=== PATIENT | male | born 1970 | race Caucasian/White ===

== ENCOUNTER → 2016-10-17 | Outpatient (CLI) | payer OTHER ==
[2016-10-17 10:31] LABS: HEMOGLOBIN A1c 5.4 % (4.8-5.6)
== END | disposition home or self-care (01) ==
LOC: LAB 09:48
PROVIDERS: Family Medicine
DX: D55.9 Anemia due to enzyme disorder, unspecified (principal)

== ENCOUNTER 2016-11-17 18:34 | Emergency (ER) | payer OTHER ==
[~2016-11-17] VITALS: Ht 185.4 cm; Wt 90.7 kg
[2016-11-17] MEDS ORDERED: VITAMIN D400 UNIT/1 PO (18:39)
[2016-11-17] MEDS ORDERED: FISH OIL1000 MG PO (18:39)
== END 2016-11-17 19:02 | disposition home or self-care (01) ==
LOC: ED 18:34
DX: S61.210A Laceration without foreign body of right index finger without damage to nail, initial encounter (principal); Z29.12 Encounter for prophylactic antivenin; W45.8XXA Other foreign body or object entering through skin, initial encounter; Y93.89 Activity, other specified; Y92.9 Unspecified place or not applicable; Y99.9 Unspecified external cause status

== ENCOUNTER → 2018-10-14 | Outpatient (CLI) | payer OTHER ==
[~2018-10-14] MED LIST: FISH OIL1000 MG PO; VITAMIN D400 UNIT/1 PO
[2018-10-14 10:30] LABS: HEMATOCRIT 44.8 % (42.0-52.0); MEAN CELL VOLUME 96.1 fl (80.0-94.0); MEAN CORPUSCULAR HGB 32.2 pg (27.0-31.0); MEAN CORPUSCULAR HGB CONC 33.5 g/dl (33.0-37.0); MEAN PLATELET VOLUME 10.6 fl (9.6-12.3); RED BLOOD COUNT 4.66 10*6/uL (4.50-5.90); RED CELL DISTRI WIDTH 12.4 % (0-14.5); WHITE BLOOD COUNT 7.1 10*3/uL (4.8-10.8)
[2018-10-14 10:46] LABS: ALKALINE PHOSPHATASE 89 U/L (45-117); BUN 27 mg/dl (7-24); CHLORIDE 104 mmol/L (98-107); CHOLESTEROL 199 mg/dL (<200); CREATININE 1.24 mg/dL (0.70-1.30); HDL CHOLESTEROL 66 mg/dl (40-60); LDL CHOLESTEROL 113 mg/dL (9-159); POTASSIUM 4.9 mmol/L (3.5-5.1); SGOT/AST 11 IU/L (3-35); SGPT/ALT 21 U/L (12-78); SODIUM 141 mmol/L (136-145); TOTAL PROTEIN 7.8 gm/dL (6.4-8.2); TRIGLYCERIDES 99 mg/dl (<150); VLDL CHOLESTEROL 20 mg/dL (6-40)
== END | disposition home or self-care (01) ==
LOC: LAB 10:00
PROVIDERS: Family Medicine
DX: E78.00 Pure hypercholesterolemia, unspecified (principal); E55.9 Vitamin D deficiency, unspecified; K64.9 Unspecified hemorrhoids; K62.5 Hemorrhage of anus and rectum